=== PATIENT | female | born 1990 | race Caucasian/White ===

== ENCOUNTER 2025-02-22 15:52 | Emergency (ER) | payer OTHER, SELFPAY ==
[2025-02-22 16:13] VITALS: BP 100/62; PULSE 72; RESP 18; TEMP 36.6; O2SAT 100; BMI 24.7
--- NOTE | 2025-02-22 16:41 | ED.GENADULT ---
HPI - General Adult General Chief complaint: Eye Problems Stated complaint: atropine in rt eye Time Seen by Provider: 02/22/25 16:26 Source: patient, RN notes reviewed and old records reviewed Mode of arrival: ambulatory Limitations: no limitations History of Present Illness ED Provider: Bobby HPI narrative: 34-year-old female presents for evaluation of foreign substance in right eye. 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 She did not rinsing the eye out. She reports some discomfort to the eye She took the contact out of her right eye The patient called poison control and was referred to the ED Related Data Allergies Allergy/AdvReac Type Severity Reaction Status Date / Time No Known Allergies Allergy Verified 02/22/25 16:17 Review of Systems Eyes: Eyes: Denies exophthalmos, Denies diplopia, Reports irritation and Reports eye pain Comments: Dilated right eye PMFSH Social History Social History Advance Directives: No Advance Directives Information Provided: Yes Physical Exam ED Vital Signs: Vital Signs - 24 hr 02/22/25 16:13 02/22/25 17:16 Temperature 97.9 F 97.9 F Pulse Rate 72 72 Respiratory Rate 18 18 Blood Pressure 100/62 100/62 Pulse Oximetry 100 100 Oxygen Delivery Method Room Air Room Air BMI result Body Mass Index 24.7 Eyes Other: The right pupil is markedly dilated to about 1 cm. Minimal conjunctival injection on the right. Medical Decision Making Medical Decision Making [facility] Narrative: 34-year-old female presents for evaluation of accidentally getting atropine in her right eye. This was a systemic dose for an animal that was accidentally administered into her right eye. Her right eye is markedly dilated compared to left. Intra-ocular pressure is 15.7 on the right. The eye was already flushed. We will touch base with Ophthalmology Differential Diagnosis Differential Diagnoses: The differential diagnosis associated with the presentation includes Right eye foreign substance Right eye pain Acute angle closure glaucoma Conjunctivitis Consult Healthcare Provider Management of the patient was discussed with: Cutter Operator Asbestos Shingle (Dr. Jordan, Ophthalmology) Ophthalmology recommends checking intra-ocular pressures which was done and within normal limits. He recommends sunglasses until her pupil is back to normal. The patient does not require further intervention unless she develops vision loss or severe pain. Discharge Plan Discharge Clinical Impression: Fixed dilated pupil of right eye Patient Disposition: Home, Self-Care Instructions: Eye Pain (ED) Additional Instructions: Your eye is markedly dilated due to the atropine that splashed in your eye. The intra-ocular pressure of your eye was well within normal limits at 15.7 I recommend that you wear sunglasses until your pupil is back to a normal-size You may have some minor issues with depth perception and reading until your people returns to normal Return for new or worsening symptoms, especially develop severe pain to the right eye Stand Alone Forms: Work/School Release Interventions: ED Discharge Assessment Last Done: 02/22/25 17:16 Discharge Date/Time: 02/22/25 17:17 Print Language: Vietnamese
--- OUTSIDE RECORDS SUMMARY | 2025-02-22 16:42 | XMS_ITS ---
Author Name [facility] Organization Unknown History of Medication Use Medication Directions Dispensed Refills Start Date End Date Stat us tirzepatide (ZEPBOUND) 7.5 mg/0.5 mL pen-injector Inject 1 Pen (7.5 mg total) under the skin once a week. 02/07/2025 active Emgality 120 MG/ML injection INJECT 1 ML (120 MG TOTAL) UNDER THE SKIN EVERY 28 DAYS (4 WEEKS). INJECT 1MG SUBCUTANEOUS ONCE MONTHLY 01/05/2025 active lisdexamfetamine (VYVANSE) 30 MG capsule Take 1 capsule (30 mg total) by mouth every morning. Max Daily Amount: 30 mg 12/08/2024 active ondansetron (ZOFRAN) 4 MG tablet Take 1 tablet (4 mg total) by mouth 3 times daily (every 8 hours) as needed for nausea or vomiting. 05/24/2024 active Ubrelvy 100 MG tablet 05/01/2021 active Ajovy 225 mg/1.5 mL subcutaneous auto-injector INJECT 1.5ML ONCE A MONTH INJECT 1.5ML ONCE A MONTH completed etonogestrel 0.12 mg-ethinyl estradiol 0.015 mg/24 hr vaginal ring Insert 1 vaginal ring every month by vaginal route. Insert 1 vaginal ring every month by vaginal route. completed levonorgestrel (Mirena, 52 MG,) 20 mcg/24hr IUD Mirena 20 mcg/24 hours (6 yrs) 52 mg intrauterine device 1 active ondansetron (ZOFRAN-ODT) 8 MG disintegrating tablet Take 8 mg by mouth every 8 (eight) hours as needed for nausea. active spironolactone 25 mg tablet TAKE 1 TABLET BY MOUTH EVERY DAY TAKE 1 TABLET BY MOUTH EVERY DAY completed spironolactone 50 mg tablet TAKE 1 TABLET BY MOUTH EVERY DAY IN THE MORNING TAKE 1 TABLET BY MOUTH EVERY DAY IN THE MORNING completed Problems Problem Status Onset Date Problem Type Date of Resolution Source Migraine without aura and without status migrainosus, not intractable active 2023-01-04 1 ProblemAct [facility] Previous section active 5 ProblemAct [facility] Acute pain of right wrist active EncounterDiagnosisAct [facility] Iron deficiency anemia active 2023-01-04 1 ProblemAct [facility] Obesity active 2023-01-04 1 ProblemAct [facility] Hirsutism active 2023-01-04 1 ProblemAct [facility] delivery delivered active 9 ProblemAct [facility] Encounter for care in first trimester of first active 2016-03-06 4 ProblemAct [facility] Screening for cholesterol level active EncounterDiagnosisAct [facility] Encounter for dietary counseling and surveillance active [facility]DiagnosisAct [facility] Need for vaccination active EncounterDiagnosisA ct [facility] Pure hypercholesterolemia active EncounterDiagnosisAct [facility] Screening for diabetes mellitus (DM) active EncounterDiagnosisAct [facility] Immunizations Vaccine Date Source Lot Number Status Influenza, Trivalent (FLUARI X, AFLURIA, FLULAVAL, FLUZONE) Preservative Free IM 05/16/2024 [facility] [id number] completed Rabies (Rabavert) Fibroblast Culture 11/06/2023 [facility] [id number] completed Rabies Fibroblast (RABAVERT) 11/03/2023 [facility] [id number] completed Influenza, Quadrivalent (FLU ARIX, AFLURIA, FLULAVAL, FLUZONE) Preservative Free IM 05/14/2023 [facility] [id number] completed Influenza, Quadrivalent 04/17/2022 [facility] [id number] ompleted Influenza, Quadrivalent (FLU ARIX, AFLURIA, FLULAVAL, FLUZONE) Preservative Free IM 04/17/2022 [facility] [id number] completed Influenza, Quadrivalent (FLU ARIX, AFLURIA, FLULAVAL, FLUZONE) Preservative Free IM 04/23/2021 [facility] [id number] completed Influenza, Quadrivalent (FLU CELVAX) MDCK, Preservative Free IM 04/23/2021 [facility] [id number] completed Covid-19 (Essential Viewing) Dilution Required 11/05/2020 [facility] [id number] completed Covid-19 (Pfizer) Dilution Required 10/15/2020 [facility] [id number] completed Influenza, Unspecified 04/19/2020 [facility] co mpleted Fluzone Quadrivalent Single Dose Vial 04/12/2020 [facility] [id number] completed Influenza, Quadrivalent 04/12/2020 [facility] [id number] c ompleted Tdap 05/26/2019 [facility] SEE CHART completed Influenza, Quadrivalent (FLU ARIX, AFLURIA, FLULAVAL, FLUZONE) Preservative Free IM 04/01/2018 [facility] [id number] completed Rho (D) Immune Globulin 11/12/2016 [facility] [id number] c ompleted Tdap 08/21/2016 [facility] [id number] completed Rho (D) Immune Globulin 08/07/2016 [facility] [id number] c ompleted Influenza (AFLURIA/FLUZONE) Inactivated/Split Quadrivalent with Preservative IM 04/03/2016 [facility] [id number] completed Encounters Encounter Type Encounter Reason Primary Diagnosis Location Date Ambulatory Pain in right wrist Pain in right wrist [email or web address] 02/07/2025 Ambulatory [facility] w female genital organs and menstrual cycle [facility] w female genital organs and menstrual cycle [facility] 01/23/2025 Ambulatory [email or web address] 12/08/2024 Ambulatory Attention-deficit hyperactivity disorder, combined type Attention-deficit hyperactivity disorder, combined type [email or web address] 09/08/2024 Ambulatory Encounter for genera l adult medical examination without abnormal findings Encounter for general adult medical examination without abnormal findings [email or web address] 05/31/2024 Ambulatory Flu Vaccine Dietary counseli ng and surveillance [facility] [place] 05/16/2024 Ambulatory swollen lymphnodes swollen lymphnodes [facility] 03/24/2024 Emergency Encounter for immunization Encounter for immunization [facility] 11/06/2023 Emergency Contact with and (suspected) exposure to rabies Contact with and (suspected) exposure to rabies [facility] 11/03/2023 Ambulatory Encounter for genera l adult medical examination without abnormal findings Encounter for general adult medical examination without abnormal findings [email or web address] 06/15/2023 Ambulatory Acute upper respiratory infection, unspecified Acute upper respiratory infection, unspecified [email or web address] 02/05/2023 Ambulatory Migraine, unspecified, not intractable, without status migrainosus [facility] 12/18/2022 Ambulatory [facility] 07/01/2022 Ambulatory [facility] 06/10/2022 Ambulatory [facility] 01/02/2022 Ambulatory [facility] 12/11/2021 Ambulatory [facility] 11/19/2021 Ambulatory [facility] 10/17/2021 Ambulatory [facility] 09/19/2021 Ambulatory Consult [facility] 05/09/2021 Ambulatory [facility], [facility] 03/13/2021 Care Team Organization Name Specialty Phone Email Start Date End Da te [facility] 12/08/2024 [facility] [id number] Primary Care 05/26/2024 11/22/2024 [facility] CHELY YAN Primary Care 05/16/2024 [facility] MISIASZEK Primary Care 11/04/2023 01/17/2025 [facility] 11/03/2023 [facility] 0 11/03/2023 [facility] 09/30/2023 11/22/2024 [facility] 05/07/2023 024 [facility] 03/28/2023 024 [facility] JENNIFER BERNSTEIN Primary Care 12/18/2022 [facility] 09/08/2022 09/08/2022 [facility] CHELY YAN Primary Care 05/16/202202/21 [facility], [facility] 02/17/2022 [facility] CHELY YAN Primary [facility] 05/09/2021 021 [facility] CHELY YAN Primary [facility] 05/09/2021 [facility], [facility] 02/06/202112/11
--- OUTSIDE RECORDS SUMMARY | 2025-02-22 16:42 | XMS_ITS | Clinical Summary ---
Author Organization [facility] Address [address] [place] [address] Care Team Providers Care Label Cutter Name Role Phone Flavia Rivera Primary Care Provider [phone] Allergies No known active allergies Medications Medication Sig Dispensed Refills Start Date End Date Status Vit-Fe Fumarate-FA ( PLUS) 27-1 MG TABS tablet Take 1 tablet by mouth every morning after breakfast. 0 Active UNABLE TO FIND Inject 1 Dose under the skin every 30 (thirty) days. ajovy 0 Active Ubrogepant (UBRELVY PO) Take 1 tablet by mouth continuous prn. 0 Active SPIRONOLACTONE PO Take 1 tablet by mouth daily. 0 Active ondansetron (ZOFRAN-ODT) 8 MG disintegrating tablet Take 8 mg by mouth every 8 (eight) hours as needed for nausea. 0 Active Active Problems Problem Noted Date Diagnosed Date Previous section 06/09/2019 Overview: Added automatically from request for surgery [id number] delivery delivered 11/11/2016 Encounter for care in first trimester of first 03/19/2016 Immunizations Name Administration Dates Next Due Covid-19 (Pfizer) Dilution Required 11/05/2020,0 10/15/2020 Influenza Quad (Afluria/Fluz one) 0.5mL >=6mon Vial (SD-IIV4) 04/03/2016 [facility] (D) Immune Globulin 11/12/2016,08/07/2016 Rabies (Rabavert) Fibroblast Culture 11/06/2023, 11/03/2023 Tdap 08/21/2016 Family History Medical History Relation Name Comments Ovarian cancer Other second p cous in, 46 Breast cancer Paternal Grandmother 5 4 Colon cancer Neg Hx Uterine cancer Neg Hx Relation Name Status Comments Other Paternal Grandmother Social History Tobacco Use Types Packs/Day Years Used Date Smoking Tobacco: Former Cigarettes 1 13 0 07/06/2002 - 02/04/2016 Smokeless Tobacco: Never Alcohol Use Standard Drinks/Week Comments Yes 0 (1 standard drink = 0.6 oz pur e alcohol) occasional Sex and Gender Information Value Date Recorded Sex Assigned at Female 02/28/2019 8:44 AM EDT Gender Identity Female 07/15/2019 5:42 AM EST Sexual Orientation Not on file Job Start Date Occupation Industry Not on file Not on file Not on file Last Filed Vital Signs Vital Sign Reading Time Taken Comments Blood Pressure 109/76 11/06/2023 5:18 PM EDT Pulse 71 11/06/2023 5:18 PM EDT Temperature 37.2 C (99 F) 11/06/2023 5:18 PM EDT Respiratory Rate 18 11/06/2023 5:18 PM EDT Oxygen Saturation 100% 11/06/2023 5:18 PM EDT Inhaled Oxygen Concentration - - Weight 87.5 kg (193 lb) 11/06/2023 5:18 PM EDT Height 165.1 cm (5' 5 ) 11/06/2023 5:18 PM EDT Body Mass Index 32.12 11/06/2023 5:18 PM EDT Plan of Treatment Health Maintenance Due Date Last Done Comments Hepatitis B Vaccines (1 of 3 - 3-dose series) 1990 Hepatitis C Screening 1990 Depression Screening 2002 BMI Counseling 2008 Preventative Health Evaluation 2008 Cervical Cancer Screening (Pap Smear) 2011 COVID-19 Vaccine ( season) 2024 11/05/2020, 10/15/2020 Influenza Vaccine (#1) 2025 , 04/17/2022, 04/17/2022, Additional history exists DTap / Tdap / Td (3 - Td or Tdap) 05/26/2029 05/26/2019, 08/21/2016 Pneumococcal Vaccine Aged Out No long er eligible based on patient's age to complete this topic RSV Ped < 20 months Aged Out No longe r eligible based on patient's age to complete this topic Advance Directives For more information, please contact: [phone] Latest Code Status on File Code Status Date Activated Date Inactivated Comments Full Code 07/15/2019 9:24 AM 07/18/2019 5:17 PM This code status was ascertained in the following way: discussion with patient . Code Status History Code Status Date Activated Date Inactivated Comments Full Code 07/15/2019 5:36 AM 07/15/2019 9:24 AM This code status was ascertained in the following way: discussion with patient . Full Code 07/15/2019 5:12 AM 07/15/2019 5:36 AM This code status was ascertained in the following way: discussion with patient . Full Code 11/09/2016 6:43 PM 11/14/2016 6:38 PM This c ode status was ascertained in the following way: discussion with patient. Care Teams Label Cutter Relationship Specialty Start Date End Date Flavia Rivera PA PCP - General Physician Outboard Motors Experimental Mechanic 12/04/21
--- OUTSIDE RECORDS SUMMARY | 2025-02-22 16:42 | XMS_ITS | Encounter Summary ---
Author Organization [facility] Address [address] [place], [place] [id number] Care Team Providers Care Automotive Warranty Administrator Name Role Phone Flavia Rivera Primary Care Provider [phone] Encounter Details Date Type Department Care Team (Late Contact Info) Description 12/14/2023 Scanned Document [facility] Department of Internal Medicine [place] [address] [place] [phone] Flavia Rivera PA [address] [place] [address] Social History Tobacco Use Types Packs/Day Years Used Date Smoking Tobacco: Former Cigarettes Smokeless Tobacco: Never Alcohol Use Standard Drinks/Week Comments Yes 0 (1 standard drink = 0.6 oz pur e alcohol) Comments No Sex and Gender Information Value Date Recorded Sex Assigned at Female 09/06/2022 4:20 PM EST Legal Sex Female 6:28 PM EDT Gender Identity Female 09/06/2022 4:20 PM EST Sexual Orientation Choose not to disclose 2022 4:20 PM EST 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 Not on file Not on file documented as of this encounter Plan of Treatment Upcoming Encounters Date Type Department Care Team (Late st Contact Info) Description 03/16/2025 9:30 AM EDT Office Visit [facility] Department of Internal Medicine [place] [address] [place] [phone] Flavia Rivera PA [address] [place] [phone] 05/29/2025 8:30 AM EST Office Visit [facility] Department of Internal Medicine [place] [address] [place] [phone] Flavia Rivera PA [address] [id number] documented as of this encounter Visit Diagnoses Not on filedocumented in this encounter Care Teams Automotive Warranty Administrator Relationship Specialty Start Date End Date Flavia Rivera PA [address] [facility] [address] [place] [address] PCP - General Internal Medicine 08/09/22 documented as of this encounter
--- OUTSIDE RECORDS SUMMARY | 2025-02-22 16:42 | XMS_ITS | Clinical Summary ---
Author Organization [facility] it Address [address] [place] [address] Care Team Providers Care Kelp Or Seagrass Gatherer Name Role Phone Flavia Rivera Primary Care Provider [phone] Surgical History Surgery Date Site/Laterality Comments TONSILLECTOMY 2001 PROCEDURE:TONSILLECTOMY GANGLION CYST EXCISION 2013 Left PROCEDURE:GANGLION CYST EXCISION;COMMENT:wrist DILATION AND CURETTAGE OF UTERUS 2013 PROCEDURE:DILATION AND CURETTAGE OF UTERUS;COMMENT:EAB SECTION 11/11/2016 N/A PROCEDURE: SECTION;COMMENT:Procedure: OB SECTION; Surgeon: Bailee Sunshine DO; Location: [facility] DELIVERY ROOM; Service: Obstetrics; Laterality: N/A; SECTION 07/15/2019 N/A PROCEDURE: SECTION;COMMENT:Procedure: OB SECTION REPEAT; Surgeon: Bailee Sunshine DO; Location: [facility] DELIVERY ROOM; Service: Obstetrics; Laterality: N/A; HYSTEROSCOPY 12/11/2021 N/A PROCEDURE:HYSTEROSCOPY;COMMEN T:Procedure: D&C HYSTEROSCOPY; Surgeon: Dejah Dumont MD; Location: [facility] AMBULATORY SURGERY; Service: Gynecology; Laterality: N/A; HYSTEROSCOPY 12/11/2021 N/A PROCEDURE:HYSTEROSCOPY;COMMEN T:Procedure: HYDROTHERMAL ABLATIONS; Surgeon: Dejah Dumont MD; Location: [facility] AMBULATORY SURGERY; Service: Gynecology; Laterality: N/A; Medical History Medical History Date Comments Migraine headache DX:Migraine he adache Family History Medical History Relation Name Comments Ovarian cancer Other second p cous in, 46 Breast cancer Paternal Grandmother 5 4 Colon cancer Neg Hx Uterine cancer Neg Hx Relation Name Status Comments Other Paternal Grandmother Social History Tobacco Use Types Packs/Day Years Used Date Smoking Tobacco: Former Cigarettes 1 13.6 0 07/06/2002 - 02/04/2016 Smokeless Tobacco: Never Alcohol Use Standard Drinks/Week Comments Yes 0 (1 standard drink = 0.6 oz pur e alcohol) Comments Unknown Sex and Gender Information Value Date Recorded Sex Assigned at Not on file Legal Sex Female 4:27 AM EST Gender Identity Not on file Sexual Orientation Not on file Obstetrics History Plan of Treatment Health Maintenance Due Date Last Done Comments Hepatitis B Vaccines (1 of 3 - 19+ 3-dose series) 2009 Cervical Cancer Screening: P ap Smear 2011 HIV Screening 06/08/2022 Hepatitis C Screening 06/08/2022 Social Influencers of Health Screening 06/08/2022 COVID-19 Vaccine (3 - 2023-2 5 season) 2024 11/05/2020, 10/15/2020 Depression Screening 07/06/2024 Influenza Vaccine (#1) 2025 04/03/2016 Cholesterol Screening (Lipid Panel) 08/16/2025 08/16/2020, 09/01/2017 DTaP,Tdap,and Td Vaccines (2 - Td or Tdap) 08/21/2026 08/21/2016 HIB Vaccines Aged Out No longer eligi ble based on patient's age to complete this topic HPV Vaccines Aged Out No longer eligi ble based on patient's age to complete this topic Hepatitis A Vaccines Aged Out No long er eligible based on patient's age to complete this topic IPV Vaccines Aged Out No longer eligi ble based on patient's age to complete this topic MMR Vaccines Aged Out No longer eligi ble based on patient's age to complete this topic Meningococcal ACWY Vaccine Aged Out N o longer eligible based on patient's age to complete this topic Meningococcal B Vaccine Aged Out No l onger eligible based on patient's age to complete this topic Pneumococcal Vaccine: Pediatrics (0 to 5 Years) and At-Risk Patients (6 to 49 Years) Aged Out No longer eligible b ased on patient's age to complete this topic RSV Immunization Patients Under 20 months Aged Out No longer eligible b ased on patient's age to complete this topic Varicella Vaccines Aged Out No longer eligible based on patient's age to complete this topic Care Teams Kelp Or Seagrass Gatherer Relationship Specialty Start Date End Date Flavia Rivera PA PCP - General Physician Stonecutter Assistant 12/04/21
[2025-02-22 17:16] VITALS: BP 100/62; PULSE 72; RESP 18; TEMP 36.6; O2SAT 100
== END 2025-02-22 17:17 | disposition home or self-care (01) ==
PROVIDERS: Emergency Provider Emergency Medicine
DX: H57.04 Mydriasis (principal); Y65.8 Other specified misadventures during surgical and medical care; Y93.F9 Activity, other caregiving; Y92.89 Other specified places as the place of occurrence of the external cause; Y99.8 Other external cause status
CPT/HCPCS: 99282